=== PATIENT | female | born 1980 | race Caucasian/White ===

== ENCOUNTER 2023-11-08 15:37 | Emergency (ER) | payer OTHER, SELFPAY ==
[2023-11-08 15:39] VITALS: BP 110/75
[2023-11-08 15:48] VITALS: BP 103/74
[2023-11-08 16:00] VITALS: BP 97/83
--- NOTE | 2023-11-08 16:01 | ED.GENMED ---
History of Present Illness
General
Chief Complaint: Headache
Source: patient
Exam Limitations: none
Time Seen by Provider: 11/08/23 15:47
Nursing documentation reviewed up to this point in time: agreed with
History of Present Illness
History of Present Illness:
43-year-old female past medical history of hypothyroidism presenting to the emergency department today with concerns of a bilateral frontal headache progressive over the past 3 weeks initially treated for potential sinusitis with Augmentin 3 weeks
ago seemed have some improvement of time but symptoms have rebounded with seen by ENT started on nasal steroid and antihistamine still with ongoing headache had a scheduled outpatient CT scan weeks but claims that the headache was concerning today
and slightly worsened which prompted come to the ER. Denies any nausea vomiting changes in vision numbness or weakness. Denies any chest pain or shortness of breath. Denies any trauma.
Past History
Past History
ED Past Medical History: None
ED Past Surgical History: None
Social History
Tobacco: Smoker
Alcohol: None
Review of Systems
Review of Systems
Allergies reviewed?: Yes
All Other Systems: ROS reviewed and negative except as documented in HPI and ROS
Phy Exam
Physical Exam
Physical Exam:
GENERAL: Alert , in no apparent distress
EYE: pupils equal and reactive
NECK: Supple, no significant adenopathy.
ENT: o/p clr, mmm.
CARDIAC: Regular rate and rhythm .
LUNGS: Clear breath sounds bilaterally, no acute respiratory distress, no wheezes/rales/rhonchi
ABDOMEN: Soft, without focal tenderness, no r/g, no cvat
NEUROLOGICAL: Alert and oriented, no focal neuro deficits 5 out of 5 upper and lower extremity strength normal sensation when palpating bilaterally normal finger-nose and [id number] walking with steady gait.
SKIN: Warm and dry, skin intact.
MUSCULOSKELETAL: No edema, well perfused.
PSYCH: Normal and appropriate interaction.
Course
Orders/Labs/Results
Orders:
Orders
11/08/23 16:00
CT Head W/o Iv Contrast Urgent
Comment:
Reason For Exam: Progressive SWIFT x3 weeks
Dexamethasone [Decadron] 10 mg PO NOW STA
Vital Signs
Initial and Last Documented VS:
Initial Vital Signs
Temp Pulse Resp BP Pulse Ox
98.3 F 87 20 110/75 99
11/08/23 15:39 11/08/23 15:39 11/08/23 15:39 11/08/23 15:39 11/08/23 15:39
Last Documented Vital Signs
Temp Pulse Resp BP Pulse Ox
98.3 F 87 20 97/83 95
11/08/23 15:39 11/08/23 15:39 11/08/23 15:39 11/08/23 16:00 11/08/23 16:00
MDM/Problems Addressed
MDM/Problems Addressed:
43-year-old female presenting to the emergency department today with concerns of ongoing headache over the past 3 weeks. Initially treated for sinus headache with an antibiotic without improvement a few weeks ago. She saw an ENT doctor was started
on antihistamine and nasal steroid to help with potential sinus inflammation. Headache ongoing despite taking these medications. On arrival here vital signs are normal she is well-appearing normal neurologic evaluation. Her ENT doctor was
recommending CT scan. CT scan here without emergent findings patient well-appearing throughout ER stay. Stable for outpatient management. Advised for close outpatient follow-up return precautions given. Patient was written for steroids
considering there was some signs of inflammation on examination.
*Critical Care Note
Total Time (30-74mins, 75-104mins- exclusive of procedures): Not Applicable
ED Attending Note
-
Portions of this chart may have been created with voice recognition software.� Occasional wrong word or��sound alike� substitutions may have occurred due to the inherent limitations of voice recognition software.
Discharge Plan
Departure
Patient Disposition: Home (Routine Discharge)
Date of Disposition: 11/08/23
Time of Disposition: 18:31
Patient with high blood pressure during this ER visit?: No
Condition: Good
Covid-19: Not Applicable
Discharge Problem:
Sinus headache
Instructions: Headache, Adult (DC)
Prescriptions:
New
methylprednisolone [Medrol (Mathew)] 4 mg tablets,dose pack
See Rx Instructions .ROUTE .COMPLEX Qty: 21 0RF
Rx Instructions:
orally per package directions
Referrals:
Bernarda Cagle CRNP [Family Provider] -
Sarabjit Hancock MD [Active] - Follow up in 5-7 days
Activity Restrictions/Additional Instructions:
You came to the emergency department today with concerns of ongoing headache. Here you had a normal CT scan. Please follow-up closely with neurology if headache is ongoing. Otherwise take the steroid as this will help with there is a potential
sinus headache. Return to the emergency department for any worsening, new or concerning symptoms.
Interventions
Interventions:
*Risk Screen - Suicide Last Done: 11/08/23 15:39
*General Assessment Last Done: 11/08/23 15:39
*Neglect/Abuse Screening Last Done: 11/08/23 15:39
*ED COVID-19 Vaccine History Last Done: 11/08/23 16:13
ED- Neurological Assessment Last Done: 11/08/23 16:13
Discharge Date and Time
Print Language: HAITIAN
[2023-11-08] MEDS: DECADRON 10 MG PO (16:09)
[2023-11-08 18:37] VITALS: BP 93/69
== END 2023-11-08 18:40 | disposition home or self-care (01) ==
LOC: EMR 15:37
PROVIDERS: EMERGENCY PHYSICIAN Emergency Medicine; FAMILY PHYSICIAN Nurse Practitioner Family
DX: R51.9 Headache, unspecified (principal); E03.9 Hypothyroidism, unspecified; F17.200 Nicotine dependence, unspecified, uncomplicated
CPT/HCPCS: 99284; 70450